=== PATIENT | male | born 1975 | race Caucasian/White ===

== ENCOUNTER 2024-09-06 22:46 | Emergency (ER) | payer OTHER ==
[2024-09-06] MEDS ORDERED: Sodium Chloride 0.9% 10 ML Syringe FLUSH PRN (22:51)
[2024-09-06] MEDS: Ketorolac 30 MG/ML SDV IVPUSH ONE (22:59)
[2024-09-06] MEDS: Sodium Chloride 0.9% 1,000 ML IV ONE (22:59)
[2024-09-06 23:14] LABS: BASOPHILS ABSOLUTE AUTO 0.1 x10-3/uL (0.0-0.3); BASOPHILS PERCENT AUTO 1.3 % (0.3-3.8); EOSINOPHILS ABSOLUTE AUTO 0.2 x10-3/uL (0.0-0.6); EOSINOPHILS PERCENT AUTO 2.9 % (0.1-6.8); HEMATOCRIT 45.3 % (38.3-50.1); HEMOGLOBIN 15.9 g/dL (12.9-17.7); LYMPHOCYTES ABSOLUTE AUTO 1.5 x10-3/uL (0.5-4.5); LYMPHOCYTES PERCENT AUTO 23.4 % (15.8-45.3); MEAN CORPUSCULAR HEMOGLOBIN 30.6 pg (27.0-33.3); MEAN CORPUSCULAR HGB CONC 35.2 g/dL (28.7-35.3); MEAN CORPUSCULAR VOLUME 87.1 fL (80.8-98.7); MEAN PLATELET VOLUME 9.4 fL (6.7-11.0); MONOCYTES ABSOLUTE AUTO 0.5 x10-3/uL (0.0-1.2); MONOCYTES PERCENT AUTO 7.5 % (5.5-15.2); NEUTROPHILS ABSOLUTE AUTO 4.3 x10-3/uL (1.7-6.9); NEUTROPHILS PERCENT AUTO 64.9 % (40.3-71.8); PLATELET COUNT,PLT 228 x10(3)uL (117-477); RED CELL DISTRIBUTION WIDTH 13.8 % (12.4-15.0); WHITE BLOOD CELL COUNT,WBC 6.6 x10-3/uL (3.2-10.1)
[2024-09-06 23:20] LABS: BLOOD UREA NITROGEN,BUN 17 mg/dL (7-18); BUN/CREATININE RATIO 15.5 (9-20); CALCIUM 9.7 mg/dL (8.6-10.2); CARBON DIOXIDE,CO2 23 mmol/L (21-32); CHLORIDE,CL 106 mmol/L (100-110); CREATININE 1.1 mg/dL (0.70-1.30); EST CRCL DRUG DOSING (CG) 83.88 mL/min; ESTIMATED GFR 82 mL/min (>60); GLUCOSE RANDOM 131 mg/dL (80-116); POTASSIUM,K 3.8 mmol/L (3.5-5.3); SODIUM,NA 143 mmol/L (135-145)
[2024-09-06 23:23] LABS: LIPASE 25 U/L (16-77)
[2024-09-06 23:26] LABS: A/G RATIO 1.1; ALANINE AMINOTRANSFERASE,ALT 36 U/L (12-36); ALBUMIN 3.9 g/dL (3.5-5.2); ALKALINE PHOSPHATASE 71 IU/L (56-112); ASPARTATE AMNIOTRANSFERASE,AST 7 IU/L (5-25); BILIRUBIN TOTAL 0.6 mg/dL (0.1-1.3); PROTEIN TOTAL,TP 7.4 g/dL (6.0-8.0)
[2024-09-06 23:29] LABS: LACTIC ACID 0.9 mmol/L (0.4-2.0)
[2024-09-06 23:36] LABS: C-REACTIVE PROTEIN < 0.50 mg/dL (<0.50)
[2024-09-06 23:59] LABS: BILIRUBIN,URINE NEGATIVE (NEGATIVE); GLUCOSE,URINE NORMAL (NORMAL); KETONES,URINE NEGATIVE (NEGATIVE); LEUKOCYTE ESTERASE,URINE NEGATIVE (NEGATIVE); NITRITE,URINE NEGATIVE (NEGATIVE); OCCULT BLOOD,URINE NEGATIVE (NEGATIVE); PROTEIN,URINE NEGATIVE (NEGATIVE); UROBILINOGEN,URINE NORMAL (NEGATIVE)
[2024-09-07] LABS: APPEARANCE,URINE CLEAR (CLEAR); COLOR,URINE YELLOW (YELLOW)
[2024-09-07] MEDS: Ondansetron 4 MG/2 ML SDV IVPUSH ONE (00:25)
[2024-09-07] MEDS: Morphine 2 MG/ML SYRINGE IVPUSH ONE (00:26)
[2024-09-07] MEDS: Aluminum Hydroxide/Magnesium Hydroxide Susp 30 ML Cup PO ONE (00:57)
[2024-09-07] MEDS: Pantoprazole 40 MG Vial IVPUSH ONE (01:44)
== END 2024-09-07 01:59 | disposition home or self-care (01) ==
LOC: FB.ED 22:46
DX: K57.30 Diverticulosis of large intestine without perforation or abscess without bleeding (principal); I10 Essential (primary) hypertension; Z91.018 Allergy to other foods; Z79.899 Other long term (current) drug therapy
CPT/HCPCS: 36415; 74176; 80053; 81003; 83605; 83690; 85025; 86140; 96361; 96374; 96375; 99284-25; A9270-GY; J1885; J2270; J2405; J2470; J7030